=== PATIENT | female | born 1975 | race Caucasian/White ===

== ENCOUNTER 2019-02-10 07:55 | Day surgery (SDC) | payer BC ==
--- NOTE | 2019-02-09 10:49 | RAD REPORT ---
EXAM DESCRIPTION: Henrique Garcia (2 Views)02/09/2019 10:42 am CLINICAL HISTORY: Abdominal pain/preop for cholecystectomy COMPARISON: None FINDINGS: The lungs appear clear of acute infiltrate. The heart is normal size IMPRESSION: No acute abnormalities displayed
[2019-02-09 11:08] LABS: Absolute Lymphocytes (CBC) 2.7 K/uL (0.7-4.9); Basophils % 0.5 % (0-1.3); Eosinophils % 1.3 % (0-4.4); Hematocrit 43.4 % (36.0-45.0); Lymphocytes % 19.5 % (15.3-44.8); MPV 8.7 fL (7.6-11.3); RBC Red Blood Cell Count 4.71 M/uL (3.86-4.86)
[2019-02-09 11:24] LABS: Potassium 3.9 mmol/L (3.5-5.1)
--- OUTSIDE RECORDS SUMMARY | 2019-02-10 07:57 | XMS REPORT ---
:1975 Author Organization eClinicalWorks Care Team Providers Name Role Phone Citlali Soteol Provider Role Unavailable Encounters Encounter Location Date CPE [facility] January 03, 2015 Update Demographics - Personal Info [facility] February 06, 2015 call back [facility] February 06, 2015 Social History Social History Element Qualifiers Date Reported Difficulty with bathing/grooming . No January 03, 2015 Tobacco Use: Yes. Are you a: current smoker, January 03, 2015 How often do you smoke cigarettes? every day, How soon after you wake up do you smoke your first cigarette? 6-30 min, How many cigarettes a day do you smoke? 11-20, Are you interested in quitting? Ready to quit Difficulty with eating/meal . No January 03, 2015 preparation High Risk for Sexually Acquired no. January 03, 2015 Diseases including HIV: Physical Activity: . Exercises Regularly No, January 03, 2015 Recommend exercising 10 to 20 minutes everyday Yes Ambulatory Status: . Independent January 03, 2015 Lives: . daughters January 03, 2015 Children: . 2 daughters January 03, 2015 Marital Status: single. January 03, 2015 Exercise: no. January 03, 2015 Recreational/Illicit drug use: no. January 03, 2015 Alcohol: yes. socially January 03, 2015 Vital Signs Date/Time: January 03, 2015 Height 64.5 inches Weight 148 lbs Temperature 97.3 F Blood Pressure Diastolic 84 mm Hg Blood Pressure Systolic 126 mm Hg Summary Purpose eClinicalWorks Submission
--- OUTSIDE RECORDS SUMMARY | 2019-02-10 07:57 | XMS REPORT | Continuity of Care Document ---
:1975 Author Organization [employer] [facility] Care Team Providers Name Role Phone MINDBODY Unavailable Unavailable Problems Problem Status Onset Classification Date Comments Source Date Reported Z12.31 - Active [facility] ENCNTR SCREEN 7 [facility] MAMMOGRAM FOR MA SORE THROAT Active [facility] Final: 11/02/2016 [facility] Encounter for [facility] screening mammogram for malignant neoplasm of breast Final: Family 11/02/2016 [facility] history of [place] malignant neoplasm of breast Medications Medication Details Route Status Patient Ordering Order Source Instructions Provider Date Motrin 800 mg 800 mg, 1 tab, PO Active G[facility]al [place] oral tablet PO, Q8H, PRN, [address] [place] [address] 30 tab, Pain/Fever, Substitution Allowed, Take with foodTake with food [place] 5/325 2 tab, PO, PO Active Gokal [place] oral tablet Q4-6H, PRN, [address] [place] [address] tab, Pain, Substitution Allowed, Maintenance [place] 5/325 2 tab, Route: PO No Gokal [place] oral tablet PO, Drug Form: [address] TAB, ONCE, Active STAT, Start date: 02/29/12 14:03:00, Stop date: 02/29/12 14:03:00 dexamethasone 10 mg, 2.5 mL, IM No Gokal [facility] [place] Route: IM, [address] Drug form: Active INJ, ONCE, Priority: STAT, Start date: 02/29/12 14:03:00, Stop date: 02/29/12 14:03:00 Allergies, Adverse Reactions, Alerts Substance Category Reaction Severity Reaction Status Date Comments Source type Reported codeine Assertion Drug Active [facility] allergy [place] sodium Assertion Drug Active [facility] benzoate allergy [place] Stadol Assertion Drug Active [facility] allergy [place] sulfa drugs Assertion Drug Active [facility] allergy [place] Immunizations No Data Provided for This Section Results No Data Provided for This Section Pathology Reports No Data Provided for This Section Diagnostic Reports Report Value Date Source Breast Mammo Scrn - BREAST MAMMO SCRN LUIS INCL CAD MA 10/30/2016 AR[facility] [place] LUIS incl CAD MA BILATERAL DIGITAL SCREENING MAMMOGRAM WITH CAD: 10/30/2016 CLINICAL: Screening. Strong family history of breast cancer (mother, grandmother). Current study was evaluated with a Computer Aided Detection (CAD) system. No comparison exams are available. The tissue of both breasts is extremely dense. This may lower the sensitivity of mammography. No suspicious masses, clusters of microcalcifications or areas of architectural distortion are demonstrated within either breast. IMPRESSION: BENIGN There is no mammographic evidence of malignancy. A 1 year screening mammogram is recommended. Given the strong family history of breast cancer and extremely dense breasts , a screening ultrasound may be considered. Professional services are provided by the [facility]. Manny Rico D.O., mdl/:10/30/2016 14:48:21 Steward/Stewardess Third Class: Mariaelena Cervantes, Love Brady [place] [id number] [place] [address], [place] [id number]. letter sent: Bilateral Benign Mammogram BI-RADS: 2 Benign Consultation Notes No Data Provided for This Section Discharge Summaries No Data Provided for This Section History and Physicals No Data Provided for This Section Vital Signs Vital Sign Value Date Comments Source Height 64.5 01/03/2015 [facility] Weight 148 01/03/2015 [facility] Temperature Oral (F) 97.3 F 01/03/2015 [facility] Diastolic (mm Hg) 84 01/03/2015 [facility] Systolic (mm Hg) 126 01/03/2015 [facility] Weight 59.091 02/29/2012 [facility] Height 165.10 cm 02/29/2012 [facility] Encounters Location Location Encounter Encounter Reason Attending ADM DC Status Source Details Type Number For Provider Date Date Visit ARNEL Brady Emergency [id number] HASAN 02/28 02/28 Discharg ARNEL Brady 1 GOKAL /[facility] CPE [id number] 01/03 01/03 [facility] [id number] /2014 [facility] [id number] Family c9f Practice Earlene Kim Update [id number] 02/06 02/06 [facility] Demographic [id number] /2014 [facility] - [id number] Family Personal cd7 Practice Info Earlene Kim call back [id number] 02/06 02/06 Earlene Magallanes [id number] /2014 [facility] [id number] Family [id number] Practice [facility] Outpt Diag [id number] [place] 10/30 10/31 [facility] Procedures No Data Provided for This Section Assessment and Plan No Data Provided for This Section Plan of Care No Data Provided for This Section Social History Social History Date Source No data available for this section 10/31/2016 [facility] Social History ElementQualifiersDate Reported 01/03/2015 Earlene Magallanes Difficulty with bathing/grooming Practice . No January 03, 2015 Tobacco Use: Yes. Are you a: current smoker, How often do you smoke cigarettes? every day, How soon after you wake up do you smoke your first cigarette? 6-30 min, How many cigarettes a day do you smoke? 11-20, Are you interested in quitting? Ready to quit January 03, 2015 Difficulty with eating/meal preparation . No January 03, 2015 High Risk for Sexually Acquired Diseases including HIV: no. January 03, 2015 Physical Activity: . Exercises Regularly No, Recommend exercising 10 to 20 minutes everyday Yes January 03, 2015 Ambulatory Status: . Independent January 03, 2015 Lives: . daughters January 03, 2015 Children: . 2 daughters January 03, 2015 Marital Status: single. January 03, 2015 Exercise: no. January 03, 2015 Recreational/Illicit drug use: no. January 03, 2015 Alcohol: yes. socially January 03, 2015 Family History No Data Provided for This Section Advance Directives No Data Provided for This Section Functional Status No Data Provided for This Section
--- OUTSIDE RECORDS SUMMARY | 2019-02-10 07:57 | XMS REPORT | CCD ---
:1975 Author Organization [facility] Care Team Providers Name Role Phone Ava Stout Consulting Provider Allergies, Adverse Reactions, Alerts Substance Reaction Status codeine Active sodium benzoate Active Stadol Active sulfa drugs Active Medications Medication Instructions Start Date End Date Status [place] 5/325 oral tablet 2 tab, Route: PO, Drug 02/29/2012 02/29/2012 Completed Form: TAB, ONCE, STAT, Start date: 02/29/12 14:03:00, Stop date: 02/29/12 14:03:00 dexamethasone 10 mg, 2.5 mL, Route: IM, 02/29/2012 02/29/2012 Completed Drug form: INJ, ONCE, Priority: STAT, Start date: 02/29/12 14:03:00, Stop date: 02/29/12 14:03:00 Motrin 800 mg oral tablet 800 mg, 1 tab, PO, Q8H, PRN, 30 tab, Pain/Fever, Substitution Allowed, Take with food 02/29/2012 Ordered Take with food [place] 5/325 oral tablet 2 tab, PO, Q4-6H, PRN, 20 02/29/2012 Ordered tab, Pain, Substitution Allowed, Maintenance Vital Signs Most recent to oldest [Reference Range]: 1 Height 165.10 cm (02/29/2012 13:18:00) Weight 59.091 kg (02/29/2012 13:18:00)
--- OUTSIDE RECORDS SUMMARY | 2019-02-10 07:57 | XMS REPORT ---
:1975 [facility] Address [address] [place] [address] Dr. N[address] [place] [address] Care Team Providers Name Role Phone Unavailable Unavailable Unavailable Problems This patient has no known problems. Allergies, Adverse Reactions, Alerts This patient has no known allergies or adverse reactions. Medications This patient has no known medications.
[2019-02-10 08:17] LABS: Specific Gravity 1.025 (1.005-1.030)
[2019-02-10] MEDS ORDERED: CEFOXITIN/SWI 1gm 1 GM/10 ML SYR ONE (08:24)
[2019-02-10] MEDS ORDERED: Ringers Lactate 1,000 ML IV ONE (08:24)
[2019-02-10] MEDS ORDERED: BUPIVACAINE 0.5% PF 10 ML VIAL ONE (08:56)
[2019-02-10] MEDS ORDERED: PROPOFOL 200 MG/20 ML VIAL IV ONE (09:04)
[2019-02-10] MEDS ORDERED: MIDAZOLAM HCL 2 MG/2 ML INJ ONE (09:05)
[2019-02-10] MEDS ORDERED: ROCURONIUM 50 MG/5 ML VIAL IV ONE (09:05)
[2019-02-10] MEDS ORDERED: FENTANYL CITR 100 MCG/2 ML ONE (09:05)
[2019-02-10] MEDS ORDERED: LIDOCAINE 1% MPF 5 ML VIAL ONE (09:05)
[2019-02-10] MEDS: HYDROMORPHONE HCL 1 MG/ML INJ ONE ×6 (10:18→11:20)
[2019-02-10] MEDS ORDERED: PROMETHAZINE 25 MG/ML VIAL ONE (10:34)
--- NOTE | 2019-02-10 17:52 | OP ---
Date of Procedure: 02/10/2019 Surgeon: Pepito Pedro MD Customer Quality Specialist: SAMUEL Ovalle Preoperative Diagnosis: Symptomatic cholelithiasis. Postoperative Diagnosis: Symptomatic cholelithiasis with adhesions. Procedure Performed: Laparoscopic cholecystectomy and lysis of adhesions. Estimated Blood Loss: Minimal. Specimen: Gallbladder. Findings: As above. Anesthesia: General. Complications: None. The patient tolerated the procedure in stable condition and taken to Recovery in good general conditi on. Procedure In Detail: The patient was brought to the OR and placed in supine position. General anest hesia was begun. The patient was prepped and draped in usual sterile fashion. Because the patient h ad a previous hernia repair with mesh at the umbilicus, an epigastric 1 cm incision was made. Subcut aneous tissue was divided. The fascia was identified and divided. A #1 Vic[address] stay suture was place d. Peritoneal cavity was entered with sharp and blunt dissection. A 12 mm trocar was placed into th e peritoneal cavity under direct vision. Pneumoperitoneum was established and then 11 mm trocar plac ed in the right paramedian region and then two 5 trocars placed in the right subcostal region. Lapar oscopy revealed extensive adhesions to the gallbladder, going to the fundus and the body, which were taken down with sharp and blunt dissection. Bleeding controlled with cautery. Then, the fundus was retracted superiorly. Infundibulum was identified and retracted inferolaterally. Cystic duct and cy stic artery were clearly identified with blunt dissection. Clips were placed. Both structures were divided. Cautery was used to remove the gallbladder from the liver bed. Bleeding on the liver bed w as controlled with cautery. The gallbladder was retrieved through the epigastric 12 trocar under [address] ect vision. Then, pneumoperitoneum re-established and then the right upper quadrant was irrigated. Effluent was clear. No evidence of bleeding or bile leakage appreciated. Subsequently, all trocars were removed under direct vision. Stay sutures were tied to each other to approximate the fascial de fect. Subcutaneous wounds were irrigated. Bleeding controlled with cautery. A 3-0 chromic used to approximate the subcutaneous tissue and close the skin. Sterile dressing was applied. The patient w as awakened and taken to Recovery in good general condition. Discharge Note: The patient will go to Day Surgery and home when stable. Disposition: Home. Condition: Stable. Discharge Instructions: Resume home medications and diet. Activity as tolerated. No heavy lifting. Remove outer dressing in 2 days. Shower. Keep wound clean and dry. Keep Steri-Strips on at all t imes. Incentive spirometry was ordered. Tylenol No. 3 one tablet p.o. q.4 p.r.n. pain. Zofran 4 mg p.o. q.6 p.r.n. nausea. CHAKA/SURY Voice ID: [id number] Report ID: [id number]
== END 2019-02-10 13:00 | disposition home or self-care (01) ==
LOC: OR 07:55
PROVIDERS: ATTEND Surgery
PROC: 0FT44ZZ Resection of Gallbladder, Percutaneous Endoscopic Approach (ICD-10-PCS; principal; 2019-02-10 09:00)
DX: K80.10 Calculus of gallbladder with chronic cholecystitis without obstruction (principal); K82.8 Other specified diseases of gallbladder
CPT/HCPCS: 36415; 71046; 80048; 81025; 85025; 88304; J1170; J2250; J2550; J2704; J3010

== ENCOUNTER 2019-09-05 09:05 | Emergency (ER) | payer BC ==
--- OUTSIDE RECORDS SUMMARY | 2019-09-05 09:30 | XMS REPORT | Summary of Care ---
:1975 Author Organization [facility] Address [address] [place] [address] Care Team Providers Name Role Phone Villalta, Veronica Primary Care Provider Encounter Details Date Type Department Care Team Description 03/13/2019 Orders Only [facility] Doctor Unassigned, No [address] [facility] [place] [address] [address] [place] [address] Allergies Not on Filedocumented as of this encounter (statuses as of 03/13/2019) Medications Not on filedocumented as of this encounter (statuses as of 03/13/2019) Active Problems Not on filedocumented as of this encounter (statuses as of 03/13/2019) Social History Tobacco Use Types Packs/Day Years Used Date Never Assessed Sex Assigned at Date Recorded Not on file Job Start Date Occupation Industry Not on file Not on file Not on file Travel History Travel Start Travel End No recent travel history available. documented as of this encounter Last Filed Vital Signs Not on filedocumented in this encounter Plan of Treatment Health Maintenance Due Date Last Done Comments DTaP,Tdap,and Td Vaccines (1 - 1992 Tdap) PAP SMEAR 1994 MAMMOGRAM 02/28/2019 02/28/2018 INFLUENZA VACCINE (#1) 2019 PNEUMOCOCCAL 0-64 YEARS COMBINED Aged Out No longer eligible based on SERIES patient's age to complete this topic documented as of this encounter Procedures Procedure Name Priority Date/Time Associated Diagnosis Comments ASSIGNMENT OF BENEFITS Routine 03/13/2019 9:34 AM CDT documented in this encounter Results Not on filedocumented in this encounter Insurance Payer Benefit Plan Subscriber ID Effective Dates Phone Address Type / Group [employer] [employer] [place] [id number] 2015-Anju [phone] [address] PPO/POS [place] [id number] [place] [address] documented as of this encounter
--- OUTSIDE RECORDS SUMMARY | 2019-09-05 09:30 | XMS REPORT | Summary of Care ---
:1975 Author Organization [facility] Address [address] [place] [address] Care Team Providers Name Role Phone Veronica Villalta Primary Care Provider Reason for Visit Radiology Services (Routine) Status Reason Specialty Diagnoses / Referred By Referred To Procedures Contact Contact New Request Diagnostic Diagnoses Screening breast examination Catina Berrios Radiology Procedures BI SCREENING TOMOSYNTHESIS BILATERAL BI SCREENING MAMMOGRAM BILATERAL BI SCREENING TOMOSYNTHESIS BILATERAL [address] [place] [address] Encounter Details Date Type Department Care Team Description 03/13/2019 Hospital Encounter [facility] Radiology Arrived [facility] [address] [place] [address] [facility] [place] [address] [place] [id number] Allergies Not on Filedocumented as of this encounter (statuses as of 03/14/2019) Medications Not on filedocumented as of this encounter (statuses as of 03/14/2019) Active Problems Not on filedocumented as of this encounter (statuses as of 03/14/2019) Social History Tobacco Use Types Packs/Day Years [...] encounter Procedures Procedure Name Priority Date/Time Associated Comments Diagnosis BI SCREENING Routine 03/13/2019 10:05 Screening breast Results for this TOMOSYNTHESIS AM CDT examination procedure are in BILATERAL the results section. documented in this encounter Results BI SCREENING TOMOSYNTHESIS BILATERAL (03/13/2019 10:05 AM CDT) Specimen Narrative Performed At Examination: PACS BI SCREENING TOMOSYNTHESIS BILATERAL History: Patient is 43 year old and is seen for:Screening breast examination. Hormone history includes other and hormone replacement therapy. No relevant surgical history has been documented for this patient. No relevant medical history has been documented for this patient. Computer-aided detection (CAD) utilized. Comparisons: 02/28/2018 BI SCREENING MAMMOGRAM BILATERAL Findings: The breasts are heterogeneously dense, which may obscure small masses. There is no evidence of suspicious masses, calcifications, or other abnormal findings. Impression: No mammographic evidence of malignancy. Recommendation: Annual mammographic follow-up BI-RADS Category: Both 1 - Negative Performing Organization Address City/State/Zipcode Phone Number PACS documented in this encounter Visit Diagnoses Diagnosis Screening breast examination Other screening breast examination documented in this encounter Insurance Payer Benefit Plan Subscriber ID Effective Dates Phone Address Type / Group BCBS OF [facility] [id number] 2015-Anju [phone] [address] PPO/POS [place] t [id number] [place] [address] documented as of this encounter
--- OUTSIDE RECORDS SUMMARY | 2019-09-05 09:30 | XMS REPORT ---
:1975 [facility] Address [address] [place] [address] Dr. [address] [place] [id number] Care Team Providers Name Role Phone Unavailable Unavailable Unavailable Problems This patient has no known problems. Allergies, Adverse Reactions, Alerts This patient has no known allergies or adverse reactions. Medications This patient has no known medications.
--- NOTE | 2019-09-05 10:59 | RAD REPORT ---
EXAM DESCRIPTION: Henrique Single View09/05/2019 10:51 am CLINICAL HISTORY: cough COMPARISON: January 2019 FINDINGS: The lungs appear clear of acute infiltrate. The heart is normal size IMPRESSION: No acute abnormalities displayed
--- NOTE | 2019-09-05 11:16 | EDPHYS ---
Physician Documentation [facility] Adri Name: Rubi Duval Age: 43 yrs Sex: Female : 1975 Arrival Date: 09/05/2019 Time: 09:10 Bed 17 Private MD: ED Physician Jeremiah Esparza HPI: 09/05 11:11 This 43 yrs old Female presents to ER via Ambulatory with complaints of jr8 Shortness Of Breath. 11:11 The patient has shortness of breath at rest. Onset: The symptoms/episode began/occurred jr8 gradually, 2 week(s) ago. Duration: The symptoms are intermittent. The patient's shortness of breath has no apparent modifying factors. Associated signs and symptoms: The patient has no apparent associated signs or symptoms. Severity of symptoms: At their worst the symptoms were mild in the emergency department the symptoms are unchanged. The patient has not experienced similar symptoms in the past. The patient has not recently seen a physician. stated that she started to run fever last night which concerned her and could not stop coughing . Historical: - Allergies: 09:38 PENICILLINS; ss 09:38 Sulfa (Sulfonamide Antibiotics); ss 09:39 Stadol; ss 09:39 sodium benzoate; ss - Immunization history:: Adult Immunizations up to date. - Coronavirus screen:: The patient has NOT traveled to [place], [place], or [place] in the past 14 days. Proceed with normal triage process as indicated. - Social history:: Smoking status: Patient reports the use of cigarette tobacco products, 1/4 ppd. - Ebola Screening: : Patient denies exposure to infectious person Patient denies travel to an Ebola-affected area in the 21 days before illness onset. ROS: 11:11 Eyes: Negative for injury, pain, redness, and discharge, ENT: Negative for injury, jr8 pain, and discharge, Neck: Negative for injury, pain, and swelling, Abdomen/GI: Negative for abdominal pain, nausea, vomiting, diarrhea, and constipation, Back: Negative for injury and pain, MS/Extremity: Negative for injury and deformity, Skin: Negative for injury, rash, and discoloration, Neuro: Negative for headache, weakness, numbness, tingling, and seizure. 11:11 Constitutional: Positive for fever. 11:11 Respiratory: Positive for cough, shortness of breath. Exam: 11:11 Eyes: Pupils equal round and reactive to light, extra-ocular motions intact. Lids and jr8 lashes normal. Conjunctiva and sclera are non-icteric and not injected. Cornea within normal limits. Periorbital areas with no swelling, redness, or edema. ENT: Nares patent. No nasal discharge, no septal abnormalities noted. Tympanic membranes are normal and external auditory canals are clear. Oropharynx with no redness, swelling, or masses, exudates, or evidence of obstruction, uvula midline. Mucous membranes moist. Neck: Trachea midline, no thyromegaly or masses palpated, and no cervical lymphadenopathy. Supple, full range of motion without nuchal rigidity, or vertebral point tenderness. No Meningismus. Cardiovascular: Regular rate and rhythm with a normal S1 and S2. No gallops, murmurs, or rubs. Normal PMI, no JVD. No pulse deficits. Respiratory: Lungs have equal breath sounds bilaterally, clear to auscultation and percussion. No rales, rhonchi or wheezes noted. No increased work of breathing, no retractions or nasal flaring. Abdomen/GI: Soft, non-tender, with normal bowel sounds. No distension or tympany. No guarding or rebound. No evidence of tenderness throughout. Back: No spinal tenderness. No costovertebral tenderness. Full range of motion. Skin: Warm, dry with normal turgor. Normal color with no rashes, no lesions, and no evidence of cellulitis. MS/ Extremity: Pulses equal, no cyanosis. Neurovascular intact. Full, normal range of motion. Neuro: Awake and alert, GCS 15, oriented to person, place, time, and situation. Cranial nerves II-XII grossly intact. Motor strength 5/5 in all extremities. Sensory grossly intact. Cerebellar exam normal. Normal gait. Vital Signs: 09:38 BP 125 / 83; Pulse 90; Resp 17; Temp 98.1(TE); Pulse Ox 96% on R/A; Weight 77.11 kg; ss Height 5 ft. 4 in. (162.56 cm); Pain 5/10; 11:22 BP 131 / 79; Pulse 93; Resp 17; Temp 98.9; Pulse Ox 97% ; bp 09:38 Body Mass Index 29.18 (77.11 kg, 162.56 cm) MDM: 09:49 Patient medically screened. jr8 11:11 Data reviewed: vital signs, nurses notes, lab test result(s), radiologic studies, plain [facility] films. Data interpreted: Pulse oximetry: on room air is 96 %. Interpretation: normal. Counseling: I had a detailed discussion with the patient and/or guardian regarding: the historical points, exam findings, and any diagnostic results supporting the discharge/admit diagnosis, lab results, radiology results, the need for outpatient follow up, a family practitioner, to return to the emergency department if symptoms worsen or persist or if there are any questions or concerns that arise at home. 11:11 Differential diagnosis: Bronchitis pneumonia, Pneumothorax pulmonary edema, Sepsis. [facility] 09/05 10:20 Order name: Influenza Screen (a \T\ B) [facility] 09/05 10:20 Order name: Strep [facility] 09/05 10:20 Order name: XRAY Chest (1 view) [facility] 09/05 10:48 Order name: Group A Streptococcus Rapid Sc; Complete Time: 11:11 EDTN 09/05 10:59 Order name: Influenza Screen (A ; Complete Time: 11:11 EDTN 09/05 11:09 Order name: RAD; Complete Time: 11:11 EDTN Administered Medications: No medications were administered Disposition: 09/05/19 11:14 Discharged to Home. Impression: Acute bronchitis. - Condition is Stable. - Discharge Instructions: Acute Bronchitis, Adult. - Prescriptions for Prednisone 20 mg Oral Tablet - take 1 tablet by ORAL route once daily for 5 days; 5 tablet. Albuterol Sulfate 90 mcg/actuation - inhale 1-2 puff by INHALATION route every 4-6 hours; 1 Inhaler. - Medication Reconciliation Form, Thank You Letter, Antibiotic Education, Prescription Opioid Use form. - Follow up: Private Physician; When: 1 week; Reason: Recheck today's complaints, Continuance of care, Re-evaluation by your physician. - Problem is new. - Symptoms are unchanged. Addendum: 09/07/2019 07:57 Co-signature as Attending Physician, Jeremiah Esparza MD I agree with the assessment and c torres plan of care. Signatures: Dispatcher [employer] [facility] Jeremiah Esparza MD MD cha Smirch, Shelby, RN RN Ant Steele PA PA [facility] Corby Alex RN RN bp Corrections: (The following items were deleted from the chart) 09/05 11:24 11:14 09/05/2019 11:14 Discharged to Home. Impression: Acute bronchitis. Condition is bp Stable. Forms are Medication Reconciliation Form, Thank You Letter, Antibiotic Education, Prescription Opioid Use. Follow up: Private Physician; When: 1 week; Reason: Recheck today's complaints, Continuance of care, Re-evaluation by your physician. Problem is new. Symptoms are unchanged. jr8
--- NOTE | 2019-09-05 11:16 | ER ---
Nurse's Notes [facility] Karissa Name: Rubi Duval Age: 43 yrs Sex: Female : 1975 Arrival Date: 09/05/2019 Time: 09:10 Bed 17 Private MD: Diagnosis: Acute bronchitis Presentation: 09/05 09:35 Presenting complaint: Patient states: Sinus pressure, cough, headache and not feeling ss well x > 1 week. Pt recently was given Keflex, but states it has not helped. Pt reports that she becomes more short of breath when she lays flat. Transition of care: patient was not received from another setting of care. Onset of symptoms is unknown. Risk Assessment: Do you want to hurt yourself or someone else? Patient reports no desire to harm self or others. Initial Sepsis Screen: Does the patient meet any 2 criteria? No. Patient's initial sepsis screen is negative. Does the patient have a suspected source of infection? No. Patient's initial sepsis screen is negative. Care prior to arrival: None. 09:35 Method Of Arrival: Ambulatory ss 09:35 Acuity: YANIRA 3 ss Triage Assessment: 09:45 General: Appears in no apparent distress. comfortable, Behavior is cooperative, bp appropriate for age, anxious. Pain: Complains of pain in SORE THROAT. EENT: No deficits noted. Neuro: No deficits noted. Cardiovascular: No deficits noted. Respiratory: Reports shortness of breath Onset: The symptoms/episode began/occurred at an unknown time. the patient has mild shortness of breath. GI: No signs and/or symptoms were reported involving the gastrointestinal system. : No signs and/or symptoms were reported regarding the genitourinary system. Derm: No deficits noted. Musculoskeletal: No deficits noted. Historical: - Allergies: 09:38 PENICILLINS; ss 09:38 Sulfa (Sulfonamide Antibiotics); ss 09:39 Stadol; ss 09:39 sodium benzoate; ss - Immunization history:: Adult Immunizations up to date. - Coronavirus screen:: The patient has NOT traveled to [place], [place], or [place] in the past 14 days. Proceed with normal triage process as indicated. - Social history:: Smoking status: Patient reports the use of cigarette tobacco products, 1/4 ppd. - Ebola Screening: : Patient denies exposure to infectious person Patient denies travel to an Ebola-affected area in the 21 days before illness onset. Screenin:02 Abuse screen: Denies threats or abuse. Denies injuries from another. Nutritional bp screening: No deficits noted. Tuberculosis screening: No symptoms or risk factors identified. Fall Risk None identified. Assessment: 09:45 General: SEE TRIAGE NOTE. Cardiovascular: Rhythm is sinus rhythm. Respiratory: Airway bp is patent Respiratory effort is even, unlabored, Breath sounds are clear bilaterally. 11:22 Reassessment: PT D/C HOME AMBULATORY, DX WITH ACUTE BRONCHITIS. bp Vital Signs: 09:38 BP 125 / 83; Pulse 90; Resp 17; Temp 98.1(TE); Pulse Ox 96% on R/A; Weight 77.11 kg; ss Height 5 ft. 4 in. (162.56 cm); Pain 5/10; 11:22 BP 131 / 79; Pulse 93; Resp 17; Temp 98.9; Pulse Ox 97% ; bp 09:38 Body Mass Index 29.18 (77.11 kg, 162.56 cm) ED Course: 09:10 Patient arrived in ED. mr 09:34 Corby Alex, RN is Primary Nurse. bp 09:38 Triage completed. ss 09:38 Arm band placed on right wrist. 09:47 [facility] 8 09:47 Jeremiah Esparza MD is Attending Physician. jr8 10:02 Patient has correct armband on for positive identification. Bed in low position. Call bp light in reach. Side rails up X2. 10:38 Influenza Screen (a \T\ B) Sent. bp 10:38 Strep Sent. bp 11:22 No provider procedures requiring assistance completed. Patient did not have IV access bp during this emergency room visit. Administered Medications: No medications were administered Outcome: 11:14 Discharge ordered by . jr8 11:22 Discharged to home ambulatory. bp 11:22 Condition: stable 11:22 Discharge instructions given to patient, Instructed on discharge instructions, follow up and referral plans. medication usage, Demonstrated understanding of instructions, follow-up care, medications, Prescriptions given X 3. 11:24 Patient left the ED. bp Signatures: Josefina HargroveMacie, RN RN Ant Steele PA PA jr8 Corby Alex, BASHIR RN bp
[2019-09-07 04:34] VITALS: BP 131/79; TEMP 98.9; O2SAT 97
== END 2019-09-05 11:24 | disposition home or self-care (01) ==
LOC: ER 09:05
DX: J20.9 Acute bronchitis, unspecified (principal); Z88.0 Allergy status to penicillin; Z88.2 Allergy status to sulfonamides; Z88.6 Allergy status to analgesic agent
CPT/HCPCS: 71045; 87070; 87081; 87804; 99284

== ENCOUNTER → 2021-04-24 | Day surgery (SDC) | payer BC ==
[2021-04-23 15:28] LABS: Basophils % 0.5 % (0-1.3); Hematocrit 41.5 % (36.0-45.0); Lymphocytes % 31.9 % (15.3-44.8); RBC Red Blood Cell Count 4.45 M/uL (3.86-4.86)
--- NOTE | 2021-04-23 15:46 | RAD REPORT ---
EXAM DESCRIPTION: RAD - Chest Pa And Lat (2 Views) - 04/23/2021 3:34 pm CLINICAL HISTORY: pre-op Chest pain. COMPARISON: Chest Single View dated 09/05/2019; Chest Pa And Lat (2 Views) dated 02/09/2019 FINDINGS: The lungs are clear. The heart is normal in size. No displaced fractures. IMPRESSION: No acute or concerning finding suspected.
[2021-04-23 15:56] LABS: Potassium 3.6 mmol/L (3.5-5.1)
--- NOTE | 2021-04-23 16:58 | EKG ---
Test Date: 2021-04-23 Test Time: 14:47:46 Toll Ticket Clerk: CLARE MEASUREMENT RESULTS: Intervals: Rate: 96 IA: 134 QRSD: 80 QT: 376 QTc: 475 [place]: P: 67 IA: 134 QRS: 54 T: 58 INTERPRETIVE STATEMENTS: Normal sinus rhythm Normal ECG No previous ECG available for comparison Electronically Signed On 04-23-21 16:57:46 CDT by Devon Midldeton
[~2021-04-24] MED LIST: CODEINE 30MG/APAP 300MG TAB ONE; FENTANYL CITR 100 MCG/2 ML ONE; GLYCOPYRROLATE 0.2 MG/ML SYR ONE; KETOROLAC 30 MG/ML INJ ONE; LIDOCAINE 1% MPF 5 ML VIAL ONE; MIDAZOLAM HCL 2 MG/2 ML INJ ONE; Mastisol Adhesive Liq ONE; NEOSTIGMINE 1 MG/ML -5 ML ONE; ONDANSETRON 4 MG (ODT) TAB ONE; ONDANSETRON 4 MG/2 ML VIAL ONE; ROCURONIUM 50 MG/5 ML VIAL IV ONE; dexAMETHasone 10 MG/ML VIAL ONE; propofoL 200 MG/20 ML VIAL IV ONE
[2021-04-24 11:06] VITALS: BP 124/62; TEMP 98.1; O2SAT 96
--- NOTE | 2021-04-24 11:37 | OP ---
Date of Procedure: 04/24/2021 Surgeon: Pepito Pedro MD [employer] Supervisor: Terrance Roach, surgical tech certified. Preoperative Diagnosis: Right buttock mass. Postoperative Diagnosis: Right buttock mass. Procedure: Ultrasound-guided excision of right buttock mass, 3 x 4 cm. Estimated Blood Loss: Minimal. Specimen: Culture and sensitivity and cyst wall findings as above. Probably fat necrosis. Anesthesia: General. Complications: None. Disposition: Patient in stable condition to Recovery in good general condition. Operative Note: The patient was brought to the OR and placed in the supine position. General anesth esia was begun. The patient was placed in the prone position, prepped and draped in the usual steril e fashion. Marcaine 0.5% was infiltrated at the end of the case. Ultrasound machine was used to verónica ntify the edges of the mass approximately 6.5 cm from the midline and then was appropriately marked, then a #15 blade was used to make a 4 cm incision deep in the subcutaneous tissue. Milky yellowish f luid was encountered in the cyst which cultures were done and this was aspirated, and there was a cys t cavity present, approximately 3 x 4 cm, which was excised and sent to Pathology. Wound was irrigat ed. Bleeding was controlled with cautery. Then, 2-0 chromic was used to approximate the deep subcut aneous tissue and 4-0 nylon was used to close the skin. Sterile dressing was applied. The patient w as awakened and taken to Recovery in good general condition. Discharge Note: The patient will go to Day Surgery and home when stable. Disposition: Home. Condition: Stable. Discharge Instructions: Resume home medications and diet. Activity as tolerated. No heavy lifting. Remove outer dressing in 2 days. Shower. Keep wound clean and dry. Keep Steri-Strips on at all t imes. Tylenol No.3 one tablet p.o. q.4 p.r.n. pain, Zofran 4 mg p.o. q.6 p.r.n. nausea, and Keflex 5 00 mg p.o. q.6. Follow up in my office in a week. Call for appointment. CHAKA/SURY Voice ID: [id number] Report ID: [id number]
== END ==
LOC: OR 07:30
PROVIDERS: ATTEND Surgery
PROC: 0JB90ZZ Excision of Buttock Subcutaneous Tissue and Fascia, Open Approach (ICD-10-PCS; principal; 2021-04-24 08:30)
DX: R22.2 Localized swelling, mass and lump, trunk (principal); I96 Gangrene, not elsewhere classified; Z20.822 Contact with and (suspected) exposure to COVID-19
CPT/HCPCS: 93005; 87070; 85025; 80048; 36415; 87205; 84703; 88304; 87075; 71046; 11403; U0003; J2704; J2250; J3010; J1100; J2710; J2405; 88305